=== PATIENT | female | born 1980 | race Caucasian/White ===

== ENCOUNTER 2022-02-13 18:56 | Outpatient (CLI) | payer BC, SELFPAY | END 2022-02-13 18:57 | disposition home or self-care (01) | LOC: AMB 02-16 16:54 | PROVIDERS: PCP Family Medicine; Visit Provider Family Medicine | DX: R10.9 Unspecified abdominal pain (principal) | CPT/HCPCS: A0425; A0433 ==

== ENCOUNTER 2022-02-13 19:30 | Day surgery (SDC) | payer BC, SELFPAY ==
[2022-02-13] VITALS (12 sets, daily range): BP systolic 88–112; BP diastolic 43–76; PULSE 50–67; RESP 12–18; TEMP 36.3–36.4; O2SAT 94–98
--- NOTE | 2022-02-13 19:40 | CT_ITS ---
Final Report Patient: KIERRA LYONS Facility:?[facility] Patient ID:?[id number] Site Patient ID:?[id number]. Site :?[id number] Study:?CT Abdomen/Pelvis W/O-02/13/2022 8:11:22 PM Ordering Physician:Hayde Gonzales Final Report: Indication: Abdominal pain. Technique: Multiple contiguous axial images were obtained from the lung bases through the symphysis pubis without intravenous contrast enhancement. Please note that all CT scans at this facility use dose modulation, iterative reconstruction, and/or weight-based dosing when appropriate to reduce radiation dose to as low as reasonably achievable. Comparison: October 19, 2013. Findings: The lung bases are clear. The heart is normal in size. No pericardial effusion is identified. Postsurgical changes of right mastectomy are identified. The unenhanced liver, spleen, gallbladder, pancreas, adrenals, and kidneys are normal. No intrahepatic biliary ductal dilatation is identified. No hydronephrosis is identified. In the pelvis, the urinary bladder is normal. The uterus is normal. No free fluid or free air is identified within the abdomen or pelvis. The small and large bowel are normal in caliber. The appendix is enlarged. Inflammatory changes are identified surrounding the appendix. The appendix is best seen on image number 90, series 2. The appendix measures up to 9 mm in size. The aorta is normal in caliber. Impression: Findings most consistent with appendicitis Please note that all CT scans at this facility use dose modulation, iterative reconstruction, and/or weight-based dosing when appropriate to reduce radiation dose to as low as reasonably achievable. Dictated by Rhianna Palomares MD @ 02/13/2022 8:55:31 PM (Electronic Signature)
--- NOTE | 2022-02-13 19:44 | ED_ITS ---
HPI - General Adult General Time Seen by Provider: 19:43 Date Seen: 02/13/22 Chief complaint: Abdominal Pain Stated complaint: Abdominal pain Time Seen by Provider: 02/13/22 21:17 Source: patient Mode of arrival: EMS History of Present Illness HPI narrative: 42-year-old female who comes in today with abdominal pain. Gradual onset over the last 4 hours. Has gotten progressively worse, mostly in the upper abdomen and left flank. Pain is constant, no relieving or exacerbating factors. Does not seem to be worse with movement or breathing. No chest pain. Denies urinary symptoms including hematuria or dysuria. Normal bowel movements today. Did vomit once. Denies fever chills. Took Tums with no improvement. Pain is sharp. Related Data Home Medications Medication Instructions Recorded Confirmed dicyclomine 20 mg tablet 20 mg PO BID 02/13/22 02/13/22 Previous Rx's Medication Instructions Recorded hydrocodone 5 mg-acetaminophen 325 1 tab PO Q6H PRN #25 tab 02/14/22 mg tablet Allergies Allergy/AdvReac Type Severity Reaction Status Date / Time Latex, Natural Rubber Allergy Mild rash Verified 02/13/22 19:40 Review of Systems Status of ROS: Reports: 10 or more systems reviewed and unremarkable except as noted in History and below [facility] Medical History IBS (irritable bowel syndrome) Family History (Updated 02/13/22 @ 22:17 by Tucker Ga MD) Mother Colon cancer Sister Breast cancer Social History Smoking Status: Former smoker What tobacco products do you use: cigarettes Smoking quit date/years: >15 years ago Do you use any of these nicotine containing products: None Second hand tobacco smoke exposure: No How often do you have a drink containing alcohol: monthly or less How many standard drinks containing alcohol do you have on a typical day: 1 or 2 How often do you have six or more drinks on one occasion: Never AUDIT-C Alcohol total score: 1 Non-prescribed substance use: denies use Exam Const: Vital Signs, click to edit/add: Vital Signs - 24 hr 02/13/22 19:46 02/13/22 20:17 Temperature 97.6 F 97.6 F Pulse Rate [Pulse Oximeter] 67 Respiratory Rate 16 Blood Pressure [Le ft Upper Arm] 96/58 L Pulse Oximetry 94 Documenting provider has reviewed patient's vital signs: yes Common normals: oriented x3, alert and well nourished Other: Appears uncomfortable HENMT: Common normals: normocephalic, head/scalp atraumatic, external ears normal and external nose normal Head and scalp: normocephalic and atraumatic Nose: external nose normal External ear: external ears normal Eye: Common normals: PERRL and conjunctivae normal Conjunctiva: conjunctiva(e) normal Pupil: PERRL Neck & C-Spine: Common normals: full ROM, no lymphadenopathy and supple Chest: Common normals: palpation of chest normal Resp: Common normals: normal respiratory effort and clear to auscultation bilaterally Auscultation: clear to auscultation bilaterally Cardio: Common normals: regular rate, regular rhythm and no murmurs Rate: regular rate Rhythm: regular rhythm GI: Other: Distended with normal bowel sounds, diffuse tenderness : Common normals: no CVA tenderness Bladder/kidney exam: no CVA tenderness Back & Pelvis: Common normals: no CVA tenderness and thoracic and lumbar spine normal to inspection Extremity: Common normals: normal to inspection, full ROM and no pedal edema Neuro: Common normals: oriented x3, CN's II-XII intact bilaterally and no focal motor deficits Sensorium/orientation: alert Psych: Common normals: mental status grossly normal Skin: Common normals: no rashes or lesions noted General skin exam: no rashes or lesions noted Course Reevaluation(s) Reevaluation #1: Labs so far demonstrate leukocytosis, basic panel in my previous lower normal. Hepatic panel urinalysis are still pending. Sign out to Dr. Roach. Time: 20:48 Vital Signs Vital signs: Initial Vital Signs Temperature 97.6 F 02/13/22 19:46 Temperature Source Temporal Artery Scan 02/13/22 19:46 Pulse Rate 67 02/13/22 19:46 Pulse Rhythm 02/13/22 19:46 Pulse Strength 3+ Normal 02/13/22 19:46 Respiratory Rate 16 02/13/22 19:46 Blood Pressure 96/58 L 02/13/22 19:46 Blood Pressure Mean 70 02/13/22 19:46 Blood Pressure Position Semi-Fowlers 02/13/22 19:46 Pulse Oximetry 94 02/13/22 19:46 Oxygen Delivery Method 02/13/22 19:46 Vital Signs Temperature 97.6 F 02/13/22 19:46 Pulse Rate 67 02/13/22 19:46 Respiratory Rate 16 02/13/22 19:46 Blood Pressure 96/58 L 02/13/22 19:46 Pulse Oximetry 94 02/13/22 19:46 Temperature 99.3 F 02/14/22 08:20 Pulse Rate 64 02/14/22 08:20 Respiratory Rate 18 02/14/22 08:20 Blood Pressure 101/58 L 02/14/22 08:20 Pulse Oximetry 97 02/14/22 08:20 Medical Decision Making Medical Records Medical records reviewed: Yes I reviewed the patient's medical records Lab Data Lab results reviewed: Yes I reviewed the patient's lab results Labs: Lab Results 02/13/22 02/13/22 02/13/22 Range/Units 19:55 19:55 19:55 WBC 12.97 H (4.50-11.00) K/uL RBC 3.82 L (4.00-5.20) m/uL Hgb 11.7 L (12.0-16.0) gm/dL Hct 35.7 (33.0-51.0) % MCV 94 (80-100) fL MCH 31 (26-34) pg MCHC 33 (32-36) gm/dL RDW Coeff of Christopher 11.8 (11.5-15.5) % Plt Count 249 (140-440) K/uL Neut % (Auto) 74.4 H (42.0-72.0) % Lymph % (Auto) 17.0 L (20-44) % [place] % (Auto) 6.2 (0.0-11.0) % Eos % (Auto) 1.9 (0.0-7.0) % Baso % (Auto) 0.3 (0.0-3.0) % Neut # (Auto) 9.60 H (1.7-7.0) K/uL Lymph # (Auto) 2.20 (0.90-2.90) K/uL [place] # (Auto) 0.80 (0.00-0.90) K/UL Eos # (Auto) 0.20 (0.00-0.50) K/uL Baso # (Auto) 0.00 (0.00-0.30) K/uL Abs Immat Gran (auto) 0.02 (0.00-0.30) K/uL Sodium 136 (135-149) mmol/L Potassium 3.7 (3.6-5.1) mmol/L Chloride 105 (96-114) mmol/L Carbon Dioxide 25 (20-32) mmol/L BUN 15 (5-24) mg/dL Creatinine 0.6 (0.5-1.5) mg/dL Glucose 122 H (60-115) mg/dL Lactate 0.7 (0.5-1.9) mmol/L Calcium 8.5 (8.4-10.6) mg/dL Total Bilirubin 0.5 (0.1-1.5) mg/dL Direct Bilirubin 0.3 (0.0-0.5) mg/dL AST 23 (12-35) U/L ALT 13 (4-35) U/L Alkaline Phosphatase 41 (40-150) U/L Total Protein 6.1 (6.0-8.3) g/dL Albumin 3.8 (3.3-5.0) g/dL Lipase 38 (23-300) U/L Urine Color (Yellow) Urine Appearance (Clear) Urine pH (5.0-8.5) Ur Specific [place] (1.000-1.030) Urine Protein (Negative) Urine Glucose (UA) (Negative) Urine Ketones (Negative) Urine Blood (Negative) Urine Nitrite (Negative) Urine Bilirubin (Negative) Urine Urobilinogen (0.2-1.0) Ur Leukocyte Esterase (Negative) Urine RBC (0-2) Urine WBC (0-5) Ur Squamous Epith Cells (None-Few) Urine Bacteria (None) Fine Granular Casts (None) Coarse Granular Casts (None) SARS-CoV-2 (PCR) (Negative) 02/13/22 02/13/22 02/13/22 Range/Units 19:55 21:08 21:21 WBC (4.50-11.00) K/uL RBC (4.00-5.20) m/uL Hgb (12.0-16.0) gm/dL Hct (33.0-51.0) % MCV (80-100) fL MCH (26-34) pg MCHC (32-36) gm/dL RDW Coeff of Christopher (11.5-15.5) % Plt Count (140-440) K/uL Neut % (Auto) (42.0-72.0) % Lymph % (Auto) (20-44) % [place] % (Auto) (0.0-11.0) % Eos % (Auto) (0.0-7.0) % Baso % (Auto) (0.0-3.0) % Neut # (Auto) (1.7-7.0) K/uL Lymph # (Auto) (0.90-2.90) K/uL [place] # (Auto) (0.00-0.90) K/UL Eos # (Auto) (0.00-0.50) K/uL Baso # (Auto) (0.00-0.30) K/uL Abs Immat Gran (auto) (0.00-0.30) K/uL Sodium (135-149) mmol/L Potassium (3.6-5.1) mmol/L Chloride (96-114) mmol/L Carbon Dioxide (20-32) mmol/L BUN (5-24) mg/dL Creatinine (0.5-1.5) mg/dL Glucose (60-115) mg/dL Lactate (0.5-1.9) mmol/L Calcium (8.4-10.6) mg/dL Total Bilirubin Cancelled (0.1-1.5) mg/dL Direct Bilirubin Cancelled (0.0-0.5) mg/dL AST Cancelled (12-35) U/L ALT Cancelled (4-35) U/L Alkaline Phosphatase Cancelled (40-150) U/L Total Protein Cancelled (6.0-8.3) g/dL Albumin Cancelled (3.3-5.0) g/dL Lipase (23-300) U/L Urine Color Yellow (Yellow) Urine Appearance Clear (Clear) Urine pH 7.0 (5.0-8.5) Ur Specific [place] 1.020 (1.000-1.030) Urine Protein Negative (Negative) Urine Glucose (UA) Negative (Negative) Urine Ketones 2+ A (Negative) Urine Blood Negative (Negative) Urine Nitrite Negative (Negative) Urine Bilirubin Negative (Negative) Urine Urobilinogen 0.2 (0.2-1.0) Ur Leukocyte Esterase Negative (Negative) Urine RBC 0-2 (0-2) Urine WBC 2-5 (0-5) Ur Squamous Epith Cells None (None-Few) Urine Bacteria None (None) Fine Granular Casts (None) Coarse Granular Casts Moderate A (None) SARS-CoV-2 (PCR) POSITIVE (Negative) 02/14/22 02/14/22 Range/Units 06:30 06:30 WBC 10.16 (4.50-11.00) K/uL RBC 3.62 L (4.00-5.20) m/uL Hgb 11.2 L (12.0-16.0) gm/dL Hct 33.5 (33.0-51.0) % MCV 93 (80-100) fL MCH 31 (26-34) pg MCHC 33 (32-36) gm/dL RDW Coeff of Christopher 11.9 (11.5-15.5) % Plt Count 264 (140-440) K/uL Neut % (Auto) 89.2 H (42.0-72.0) % Lymph % (Auto) 6.7 L (20-44) % [place] % (Auto) 3.9 (0.0-11.0) % Eos % (Auto) 0.0 (0.0-7.0) % Baso % (Auto) 0.1 (0.0-3.0) % Neut # (Auto) 9.10 H (1.7-7.0) K/uL Lymph # (Auto) 0.70 L (0.90-2.90) K/uL [place] # (Auto) 0.40 (0.00-0.90) K/UL Eos # (Auto) 0.00 (0.00-0.50) K/uL Baso # (Auto) 0.01 (0.00-0.30) K/uL Abs Immat Gran (auto) 0.01 (0.00-0.30) K/uL Sodium 136 (135-149) mmol/L Potassium 4.1 (3.6-5.1) mmol/L Chloride 106 (96-114) mmol/L Carbon Dioxide 23 (20-32) mmol/L BUN 10 (5-24) mg/dL Creatinine 0.5 (0.5-1.5) mg/dL Glucose 140 H (60-115) mg/dL Lactate (0.5-1.9) mmol/L Calcium 8.7 (8.4-10.6) mg/dL Total Bilirubin 0.8 (0.1-1.5) mg/dL Direct Bilirubin 0.2 (0.0-0.5) mg/dL AST 23 (12-35) U/L ALT 19 (4-35) U/L Alkaline Phosphatase 39 L (40-150) U/L Total Protein 5.9 L (6.0-8.3) g/dL Albumin 3.6 (3.3-5.0) g/dL Lipase 38 (23-300) U/L Urine Color (Yellow) Urine Appearance (Clear) Urine pH (5.0-8.5) Ur Specific [place] (1.000-1.030) Urine Protein (Negative) Urine Glucose (UA) (Negative) Urine Ketones (Negative) Urine Blood (Negative) Urine Nitrite (Negative) Urine Bilirubin (Negative) Urine Urobilinogen (0.2-1.0) Ur Leukocyte Esterase (Negative) Urine RBC (0-2) Urine WBC (0-5) Ur Squamous Epith Cells (None-Few) Urine Bacteria (None) Fine Granular Casts (None) Coarse Granular Casts (None) SARS-CoV-2 (PCR) (Negative) Discharge Plan Discharge Clinical Impression: Acute appendicitis Patient Disposition: Admitted As Inpatient Activity Level: No strenuous activity Activity Detail: No lifting more than 15-20 lb for total of 4 weeks. Discharge Diet: Regular
[2022-02-13 20:00] LABS: Slide Review Reflex No
[2022-02-13 20:01] LABS: Basophils Percent Auto 0.3 % (0.0-3.0); Eosinophils Percent Auto 1.9 % (0.0-7.0); Hematocrit 35.7 % (33.0-51.0); Hemoglobin* 11.7 gm/dL (12.0-16.0); Immature Granulocytes Abs Auto 0.02 K/uL (0.00-0.30); Lactate* 0.7 mmol/L (0.5-1.9); Mean Corpuscular HGB Conc 33 gm/dL (32-36); Mean Corpuscular Hemoglobin 31 pg (26-34); Mean Corpuscular Volume 94 fL (80-100); Monocytes Percent Auto 6.2 % (0.0-11.0); Neutrophils Percent Auto 74.4 % (42.0-72.0); Platelet Count* 249 K/uL (140-440); RDW Coefficient of Variation % 11.8 % (11.5-15.5); Red Blood Count 3.82 m/uL (4.00-5.20); White Blood Count* 12.97 K/uL (4.50-11.00)
[2022-02-13] MEDS: LACTATED RINGERS 1000 ML 1,000 ML IV (20:03)
[2022-02-13] MEDS: KETOROLAC 15 MG/ML inj IVP (20:17)
[2022-02-13 20:22] LABS: Chloride* 105 mmol/L (96-114); Potassium* 3.7 mmol/L (3.6-5.1); Sodium* 136 mmol/L (135-149)
[2022-02-13 20:24] LABS: Creatinine* 0.6 mg/dL (0.5-1.5); Estimated Glomerular Filt Rate 114.86; Lipase* 38 U/L (23-300)
[2022-02-13 20:25] LABS: Blood Urea Nitrogen* 15 mg/dL (5-24); Calcium* 8.5 mg/dL (8.4-10.6); Carbon Dioxide* 25 mmol/L (20-32); Glucose* 122 mg/dL (60-115)
--- NOTE | 2022-02-13 20:59 | ED.NURSE ---
Patient reporting improvement in pain after pain medication. Now rates 3/10, which patient states is tolerable.
--- NOTE | 2022-02-13 21:16 | ED_ITS ---
HPI - Abdominal Pain General Time Seen by Provider: 21:16 Date Seen: 02/13/22 Chief Complaint: Abdominal Pain Stated Complaint: Abdominal pain Time Seen by Provider: 02/13/22 21:17 Source: patient Mode of arrival: EMS History of Present Illness HPI narrative: Patient seen as a handoff from my colleague. CT comes back showing signs of appendicitis. Related Data Home Medications Medication Instructions Recorded Confirmed dicyclomine 20 mg tablet 20 mg PO BID 02/13/22 02/13/22 Allergies Allergy/AdvReac Type Severity Reaction Status Date / Time Latex, Natural Rubber Allergy Mild rash Verified 02/13/22 19:40 [facility] Medical History IBS (irritable bowel syndrome) Social History Smoking Status: Former smoker What tobacco products do you use: cigarettes Smoking quit date/years: >15 years ago Do you use any of these nicotine containing products: None Second hand tobacco smoke exposure: No How often do you have a drink containing alcohol: monthly or less How many standard drinks containing alcohol do you have on a typical day: 1 or 2 How often do you have six or more drinks on one occasion: Never AUDIT-C Alcohol total score: 1 Non-prescribed substance use: denies use Exam Const: Vital Signs, click to edit/add: Vital Signs - 24 hr 02/13/22 19:46 02/13/22 20:17 02/13/22 21:00 Temperature 97.6 F 97.6 F Pulse Rate [Pulse Oximeter] 67 57 L Respiratory Rate 16 18 Blood Pressure [Le ft Upper Arm] 96/58 L 112/76 Pulse Oximetry 94 98 Course Course Hospital Course: Patient seen and examined, prior records reviewed. Differential diagnosis includes but not limited to gastritis, acute cholecystitis, enteritis, colitis, diverticulitis, urinary tract infection, urinary retention, kidney stone, bowel obstruction. Patient presents with diffuse abdominal pain, distention and tenderness. Review of chart demonstrates a history of a IBS in symptoms could certainly be from that, cannot exclude other intra-abdominal pathology. Labs and CT scan ordered. Patient received pain medication from EMS and is more comfortable now. Vital Signs Vital signs: Initial Vital Signs Temperature 97.6 F 02/13/22 19:46 Temperature Source Temporal Artery Scan 02/13/22 19:46 Pulse Rate 67 02/13/22 19:46 Pulse Rhythm 02/13/22 19:46 Pulse Strength 3+ Normal 02/13/22 19:46 Respiratory Rate 16 02/13/22 19:46 Blood Pressure 96/58 L 02/13/22 19:46 Blood Pressure Mean 70 02/13/22 19:46 Blood Pressure Position Semi-Fowlers 02/13/22 19:46 Pulse Oximetry 94 02/13/22 19:46 Oxygen Delivery Method 02/13/22 19:46 Vital Signs Temperature 97.6 F 02/13/22 19:46 Pulse Rate 67 02/13/22 19:46 Respiratory Rate 16 02/13/22 19:46 Blood Pressure 96/58 L 02/13/22 19:46 Pulse Oximetry 94 02/13/22 19:46 Temperature 97.6 F 02/13/22 20:17 Pulse Rate 57 L 02/13/22 21:00 Respiratory Rate 18 02/13/22 21:00 Blood Pressure 112/76 02/13/22 21:00 Pulse Oximetry 98 02/13/22 21:00 MDM - Abdominal Pain Lab Data Labs: Lab Results 02/13/22 02/13/22 02/13/22 Range/Units 19:55 19:55 19:55 WBC 12.97 H (4.50-11.00) K/uL RBC 3.82 L (4.00-5.20) m/uL Hgb 11.7 L (12.0-16.0) gm/dL Hct 35.7 (33.0-51.0) % MCV 94 (80-100) fL MCH 31 (26-34) pg MCHC 33 (32-36) gm/dL RDW Coeff of Christopher 11.8 (11.5-15.5) % Plt Count 249 (140-440) K/uL Neut % (Auto) 74.4 H (42.0-72.0) % Lymph % (Auto) 17.0 L (20-44) % [place] % (Auto) 6.2 (0.0-11.0) % Eos % (Auto) 1.9 (0.0-7.0) % Baso % (Auto) 0.3 (0.0-3.0) % Neut # (Auto) 9.60 H (1.7-7.0) K/uL Lymph # (Auto) 2.20 (0.90-2.90) K/uL [place] # (Auto) 0.80 (0.00-0.90) K/UL Eos # (Auto) 0.20 (0.00-0.50) K/uL Baso # (Auto) 0.00 (0.00-0.30) K/uL Abs Immat Gran (auto) 0.02 (0.00-0.30) K/uL Sodium 136 (135-149) mmol/L Potassium 3.7 (3.6-5.1) mmol/L Chloride 105 (96-114) mmol/L Carbon Dioxide 25 (20-32) mmol/L BUN 15 (5-24) mg/dL Creatinine 0.6 (0.5-1.5) mg/dL Glucose 122 H (60-115) mg/dL Lactate 0.7 (0.5-1.9) mmol/L Calcium 8.5 (8.4-10.6) mg/dL Lipase 38 (23-300) U/L Discharge Plan Discharge Clinical Impression: Acute appendicitis Prescriptions: No Action dicyclomine 20 mg tablet 20 mg PO BID 0RF Label Comments: TAKE 1 TABLET BY MOUTH TWICE DAILY Follow Up/Referrals: Jerica Christie MD [Primary Care Provider] -
[2022-02-13 21:48] LABS: Appearance Urine Clear (Clear); Bilirubin Urine Negative (Negative); Blood Urine Negative (Negative); Color Urine Yellow (Yellow); Glucose Urine Negative (Negative); Ketones Urine 2+ (Negative); Leukocyte Esterase Urine Negative (Negative); Nitrite Urine Negative (Negative); Protein Urine Negative (Negative); Urobilinogen Urine 0.2 (0.2-1.0)
[2022-02-13 21:52] LABS: Albumin* 3.8 g/dL (3.3-5.0)
[2022-02-13 21:55] LABS: Bilirubin Direct* 0.3 mg/dL (0.0-0.5); Bilirubin Total* 0.5 mg/dL (0.1-1.5)
[2022-02-13 21:56] LABS: Alanine Aminotransferase* 13 U/L (4-35); Alkaline Phosphatase* 41 U/L (40-150); Aspartate Amino Transferase* 23 U/L (12-35); Total Protein* 6.1 g/dL (6.0-8.3)
[2022-02-13 21:57] LABS: RBC Urine 0-2 (0-2)
[2022-02-13 21:59] LABS: Coarse Granular Casts Urine Moderate
--- NOTE | 2022-02-13 22:07 | P.GSHP_ITS ---
History of Present Illness History of Present Illness Chief complaint: Abdominal pain Narrative: Consuelo Daigle is a 42 year old female Presented to emergency room with abdominal pain. Patient states the abdominal pain started in the morning. Was located in the mid abdomen. Patient's pain was getting more severe throughout the day. When she got home from work, she could not get comfortable. Patient took Tums but that did not help her pain. She stated that she was feeling like she was going to pass out and called the ambulance. In the emergency room she was found to have an elevated WBC of 12. Her hemoglobin was 11.7. An abdominal CT was obtained that showed a dilated wall enhancing appendix with appendicoliths. there was no evidence of a phlegmon or periappendiceal abscess. Review of Systems Narrative: General: no fevers HENT: no problems swallowing CV: no shortness of breath Resp: no cough, no breathing problems GI: See above Skin: no new rashes Musculoskeletal: no back pain Neuro: no muscle weakness Psyche: no depression PFSH PFSH Medical History IBS (irritable bowel syndrome) Social History Smoking Status: Former smoker What tobacco products do you use: cigarettes Smoking quit date/years: >15 years ago Do you use any of these nicotine containing products: None Second hand tobacco smoke exposure: No How often do you have a drink containing alcohol: monthly or less How many standard drinks containing alcohol do you have on a typical day: 1 or 2 How often do you have six or more drinks on one occasion: Never AUDIT-C Alcohol total score: 1 Non-prescribed substance use: denies use Tobacco Smoking Status: Former smoker What tobacco products do you use: cigarettes Smoking quit date/years: >15 years ago Do you use any of these nicotine containing products: None Second hand tobacco smoke exposure: No Alcohol - AUDIT-C How often do you have a drink containing alcohol: monthly or less How many standard drinks containing alcohol do you have on a typical day: 1 or 2 How often do you have six or more drinks on one occasion: Never AUDIT-C Alcohol total score: 1 Source: Developed by Andree Sen DR et al (1998). The AUDIT alcohol consumption questions (AUDIT-C): An effective brief screening test for problem drinking. [employer] (AC[employer]). [employer] Med. 158:1789- 95. Drugs Non-prescribed substance use: denies use Meds Home Medications and Allergies Home Medications Medication Instructions Recorded Confirmed Type dicyclomine 20 mg tablet 20 mg PO BID 02/13/22 02/13/22 History Allergies Allergy/AdvReac Type Severity Reaction Status Date / Time Latex, Natural Rubber Allergy Mild rash Verified 02/13/22 19:40 Exam Narrative: Exam Narrative: General appearance: Alert, cooperative, and in no distress Pulmonary: Chest symmetric, lungs clear bilaterally Cardiovascular Heart: Regular rate and rhythm, S1, S2, no murmurs/rubs/gallops Gastrointestinal: abdomen is soft, not distended, tender to palpation in epigastrium and right lower quadrant with most tenderness located in the right lower quadrant. Skin: Normal skin color, texture, and turgor. Psychiatric: Alert, cooperative, normal affect. Const: Vital Signs, click to edit/add: Vital Signs - 24 hr 02/13/22 19:46 02/13/22 20:17 02/13/22 21:00 Temperature 97.6 F 97.6 F Pulse Rate [Pulse Oximeter] 67 57 L Respiratory Rate 16 18 Blood Pressure [Le ft Upper Arm] 96/58 L 112/76 Pulse Oximetry 94 98 Documenting provider has reviewed patient's vital signs: yes Results Results CT scan - pelvis: report reviewed and image reviewed Assessment and Plan Assessment and plan (1) Acute appendicitis: Status: Acute Plan 42-year-old female with acute appendicitis. Discussed with the patient my clinical findings and her laboratory and imaging findings. Patient's WBC is elevated and her abdominal CT shows a dilated wall enhancing appendix consistent with acute appendicitis. I recommended to proceed with laparoscopic appendectomy. The procedure was discussed in detail. The risks associated the procedure including infection, bleeding, injury to intra- abdominal organs, and exposure to COVID-19 were all discussed with the patient, and she agreed to proceed.
[2022-02-13] MEDS: LACTATED RINGERS 1000 ML 1,000 ML 100 ML IV (22:25)
[2022-02-13] MEDS: CEFAZOLIN 2 GM INJ IVP (22:30)
[2022-02-13 22:31] LABS: SARS PCR* POSITIVE (Negative)
[2022-02-14] VITALS (11 sets, daily range): BP systolic 93–107; BP diastolic 49–64; PULSE 56–64; RESP 16–18; TEMP 36–37.4; O2SAT 96–100
--- NOTE | 2022-02-14 00:03 | W.ANESCHARGE ---
Anesthesia Charges Start Date/Time Anesthesia Start Date: 02/13/22 Anesthesia Start Time: 22:23 Stop Date/Time Anesthesia Stop Date: 02/13/22 Anesthesia Stop Time: 23:20 Summary Emergency: Yes
[2022-02-14] MEDS: LACTATED RINGERS 1000 ML 1,000 ML 100 ML IV (02:34)
[2022-02-14] MEDS: HYDROCODONE-ACETAMIN 5-325 MG 1 TAB PO (03:57)
--- NOTE | 2022-02-14 06:52 | PC.NURSE ---
Pt came to med/surg from PACU around 0007. VSS and she is tolerating food and liquids. Voiding well. Pain controlled with meds. 2 Lap sites with steris that are CDI.
[2022-02-14 06:54] LABS: Slide Review Reflex No
[2022-02-14 07:09] LABS: Basophils Absolute Auto 0.01 K/uL (0.00-0.30); Basophils Percent Auto 0.1 % (0.0-3.0); Hematocrit 33.5 % (33.0-51.0); Hemoglobin* 11.2 gm/dL (12.0-16.0); Immature Granulocytes Abs Auto 0.01 K/uL (0.00-0.30); Lymphocytes Percent Auto 6.7 % (20-44); Mean Corpuscular HGB Conc 33 gm/dL (32-36); Mean Corpuscular Hemoglobin 31 pg (26-34); Mean Corpuscular Volume 93 fL (80-100); Monocytes Percent Auto 3.9 % (0.0-11.0); Neutrophils Percent Auto 89.2 % (42.0-72.0); Platelet Count* 264 K/uL (140-440); RDW Coefficient of Variation % 11.9 % (11.5-15.5); Red Blood Count 3.62 m/uL (4.00-5.20); White Blood Count* 10.16 K/uL (4.50-11.00)
[2022-02-14 07:30] LABS: Albumin* 3.6 g/dL (3.3-5.0); Chloride* 106 mmol/L (96-114); Potassium* 4.1 mmol/L (3.6-5.1); Sodium* 136 mmol/L (135-149)
[2022-02-14 07:33] LABS: Alkaline Phosphatase* 39 U/L (40-150); Aspartate Amino Transferase* 23 U/L (12-35); Bilirubin Direct* 0.2 mg/dL (0.0-0.5); Bilirubin Total* 0.8 mg/dL (0.1-1.5); Blood Urea Nitrogen* 10 mg/dL (5-24); Calcium* 8.7 mg/dL (8.4-10.6); Carbon Dioxide* 23 mmol/L (20-32); Creatinine* 0.5 mg/dL (0.5-1.5); Estimated Glomerular Filt Rate 120.02; Glucose* 140 mg/dL (60-115); Total Protein* 5.9 g/dL (6.0-8.3)
[2022-02-14 07:34] LABS: Alanine Aminotransferase* 19 U/L (4-35); Lipase* 38 U/L (23-300)
[2022-02-14] MEDS: IBUPROFEN 600 MG TABLET PO (08:29)
--- NOTE | 2022-02-14 08:30 | P.GSOP_ITS ---
Operative Note Date of procedure: 02/13/22 Pre-op diagnosis: 1. Acute appendicitis. Post-op diagnosis: same Type of Procedure: 1. Laparoscopic appendectomy. Procedure Description: Indications: Patient presented to emergency room with periumbilical abdominal pain that started in the morning. Patient's pain was getting progressively worse and became more severe. She vomited. In the emergency room she was found to have an elevated WBC of 12. An abdominal CT was obtained that showed a dilated wall enhancing appendix with appendicoliths. On clinical exam patient had tenderness to palpation in the right lower quadrant and epigastrium. Given patient's clinical picture, acute appendicitis was suspected and laparoscopic appendectomy was recommended. The procedure was discussed in detail. The risks associated the procedure including infection, bleeding, injury to intra- abdominal organs, and exposure to COVID-19 were all discussed with the patient, and she agreed to proceed. After an informed consent was obtained, the patient was brought to the operating room. The patient was placed supine on the operating table and intubated by anesthesia. The surgical site was prepped and draped in the usual sterile fashion. The TIME-OUT was held and patient's identity was confirmed. A 5-mm laparoscopy port was placed in the left upper quadrant guided by a 5-mm laparoscope placed into a translucent trochar. Passage through the layers of the abdominal wall was visualized with the laparoscope. A pneumoperitoneum was established. A 30-degree 5-mm laparoscope was advanced into the abdomen. The abdomen was briefly surveyed, and there was no evidence of diffuse peritonitis. A 12-mm port and a 5-mm port were placed in the left low quadrant and suprapubically, respectively, under direct visualization by laparoscope. Left upper quadrant entrance port was then examined intraabdominally by placing the camera through the left lower quadrant port and no intraabdominal injury was seen. The patient was placed in Trendelenburg position, allowing the abdominal contents to shift cephalad. adhesions were noted in the right upper quadrant and right mid abdomen. The camera was advanced around the adhesions. The small bowel was moved toward the midline in the abdomen and this allowed for identification of the appendix. It appeared to be inflamed. The appendix was grasped and dissected from the peritoneum using Harmonic scalpel. A [place] clamp was passed between the appendiceal mesentery and the base of the appendix, creating a window. The appendiceal mesentery was skeletonized with the Mathew lala scalpel. When the appendiceal artery was clearly identified, it was clipped with two 5 mm clips on the patient's side and divided with Harmonic scalpel on the specimen side. A vascular load Endo-DORCAS stapler was advanced through the 12-mm port into the abdomen and appendix was stapled off at its base. The appendix was then placed into the Endo-Catch bag and removed through the left lower quadrant incision. The abdomen was surveyed for hemostasis. And no bleeding was seen. The 12-mm port was withdrawn and the fascial defect was closed with 0-0 Vicryl stitch using Enrico Luly needle under direct visualization. The 5-mm port was removed under direct visualization. The left upper quadrant port was used to evacuate the pneumoperitoneum and then withdrawn. The skin incisions were closed with 4-0 monocryl. Steri-Strips were applied over the incisions. All counts were correct at the end of the case. The patient tolerated this procedure well and was transferred to PACU in stable condition. Findings: Inflamed dilated appendix with normal appendiceal base. Anesthesia: GETA Surgeon: Tucker Ga MD Estimated blood loss (mL): 5 Pathology Details: Appendix. Condition: stable Disposition: PACU
--- NOTE | 2022-02-14 09:03 | P.DS_ITS ---
DS: Providers Provider Primary care physician: Jerica Christie MD Attending Physician on discharge: Tucker Ga MD DS: Diagnosis Discharge Diagnosis (1) Acute appendicitis: Status: Acute DS: Summary Hospital Course Hospital Course: Patient underwent laparoscopic appendectomy. She did well postoperatively. Status at Discharge Functional status at discharge: independent ambulation Time Spent with Patient Time attestation: Total time spent providing and/or coordinating discharge services: Exam Narrative: Exam Narrative: Abdomen is soft, not distended, minimally tender to palpation in the right lower quadrant and left lower quadrant. Surgical incisions with Steri-Strips with dried drainage on them. There is no surrounding erythema. Const: Vital Signs, click to edit/add: Vital Signs - 24 hr 02/13/22 19:46 02/13/22 20:17 02/13/22 21:00 Temperature 97.6 F 97.6 F Pulse Rate Pulse Rate [Pulse Oximeter] 67 57 L Respiratory Rate 16 18 Blood Pressure Blood Pressure [Le ft Upper Arm] 96/58 L 112/76 Blood Pressure [Ri ght Arm] Pulse Oximetry 94 98 02/13/22 22:57 02/13/22 23:20 02/13/22 23:25 Temperature 97.6 F 97.4 F L Pulse Rate 50 L Pulse Rate [Pulse Oximeter] Respiratory Rate 18 14 12 Blood Pressure 103/43 L 88/50 L Blood Pressure [Le ft Upper Arm] Blood Pressure [Ri ght Arm] Pulse Oximetry 94 95 02/13/22 23:30 02/13/22 23:35 02/13/22 23:40 Temperature Pulse Rate 55 L 50 L 50 L Pulse Rate [Pulse Oximeter] Respiratory Rate 12 12 12 Blood Pressure 100/60 91/45 L 91/56 L Blood Pressure [Le ft Upper Arm] Blood Pressure [Ri ght Arm] Pulse Oximetry 95 96 95 02/13/22 23:45 02/13/22 23:50 02/13/22 23:55 Temperature 97.4 F L Pulse Rate 51 L 53 L 50 L Pulse Rate [Pulse Oximeter] Respiratory Rate 12 12 12 Blood Pressure 94/50 L 92/54 L 94/50 L Blood Pressure [Le ft Upper Arm] Blood Pressure [Ri ght Arm] Pulse Oximetry 96 96 94 02/14/22 00:10 02/14/22 01:15 02/14/22 01:45 Temperature 96.9 F L 96.9 F L Pulse Rate Pulse Rate [Pulse Oximeter] 56 L 58 L 59 L Respiratory Rate 16 16 16 Blood Pressure Blood Pressure [Le ft Upper Arm] Blood Pressure [Ri ght Arm] 96/49 L 101/59 L 103/63 Pulse Oximetry 96 96 96 02/14/22 02:00 02/14/22 02:15 02/14/22 02:30 Temperature 96.9 F L 96.9 F L 97.2 F L Pulse Rate Pulse Rate [Pulse Oximeter] 57 L 60 58 L Respiratory Rate 16 16 16 Blood Pressure Blood Pressure [Le ft Upper Arm] Blood Pressure [Ri ght Arm] 101/63 104/60 107/59 L Pulse Oximetry 100 98 98 02/14/22 03:00 02/14/22 04:00 02/14/22 05:00 Temperature 96.8 F L 96.8 F L Pulse Rate Pulse Rate [Pulse Oximeter] 58 L 61 61 Respiratory Rate 16 16 16 Blood Pressure Blood Pressure [Le ft Upper Arm] Blood Pressure [Ri ght Arm] 104/64 93/58 L 102/60 Pulse Oximetry 96 96 02/14/22 06:00 Temperature 96.8 F L Pulse Rate Pulse Rate [Pulse Oximeter] 63 Respiratory Rate 16 Blood Pressure Blood Pressure [Le ft Upper Arm] Blood Pressure [Ri ght Arm] 96/59 L Pulse Oximetry 96 DS: Data Data Completed and Pending Labs on day of discharge: Labs from last 24 hours 02/14/22 02/14/22 02/13/22 06:30 06:30 22:55 WBC 10.16 RBC 3.62 L Hgb 11.2 L Hct 33.5 MCV 93 MCH 31 MCHC 33 RDW Coeff of Christopher 11.9 Plt Count 264 Neut % (Auto) 89.2 H Lymph % (Auto) 6.7 L [place] % (Auto) 3.9 Eos % (Auto) 0.0 Baso % (Auto) 0.1 Neut # (Auto) 9.10 H Lymph # (Auto) 0.70 L [place] # (Auto) 0.40 Eos # (Auto) 0.00 Baso # (Auto) 0.01 Abs Immat Gran (auto) 0.01 Sodium 136 Potassium 4.1 Chloride 106 Carbon Dioxide 23 BUN 10 Creatinine 0.5 Glucose 140 H Lactate Calcium 8.7 Total Bilirubin 0.8 Direct Bilirubin 0.2 AST 23 ALT 19 Alkaline Phosphatase 39 L Total Protein 5.9 L Albumin 3.6 Lipase 38 Urine Color Urine Appearance Urine pH Ur Specific [place] Urine Protein Urine Glucose (UA) Urine Ketones Urine Blood Urine Nitrite Urine Bilirubin Urine Urobilinogen Ur Leukocyte Esterase Urine RBC Urine WBC Ur Squamous Epith Cells Urine Bacteria Fine Granular Casts Coarse Granular Casts SARS-CoV-2 (PCR) Surg PTH (Off-Site) Pending 02/13/22 02/13/22 02/13/22 21:21 21:08 19:55 WBC RBC Hgb Hct MCV MCH MCHC RDW Coeff of Christopher Plt Count Neut % (Auto) Lymph % (Auto) [place] % (Auto) Eos % (Auto) Baso % (Auto) Neut # (Auto) Lymph # (Auto) [place] # (Auto) Eos # (Auto) Baso # (Auto) Abs Immat Gran (auto) Sodium Potassium Chloride Carbon Dioxide BUN Creatinine Glucose Lactate Calcium Total Bilirubin Cancelled Direct Bilirubin Cancelled AST Cancelled ALT Cancelled Alkaline Phosphatase Cancelled Total Protein Cancelled Albumin Cancelled Lipase Urine Color Yellow Urine Appearance Clear Urine pH 7.0 Ur Specific [place] 1.020 Urine Protein Negative Urine Glucose (UA) Negative Urine Ketones 2+ A Urine Blood Negative Urine Nitrite Negative Urine Bilirubin Negative Urine Urobilinogen 0.2 Ur Leukocyte Esterase Negative Urine RBC 0-2 Urine WBC 2-5 Ur Squamous Epith Cells None Urine Bacteria None Fine Granular Casts Coarse Granular Casts Moderate A SARS-CoV-2 (PCR) POSITIVE Surg PTH (Off-Site) 02/13/22 02/13/22 02/13/22 19:55 19:55 19:55 WBC 12.97 H RBC 3.82 L Hgb 11.7 L Hct 35.7 MCV 94 MCH 31 MCHC 33 RDW Coeff of Christopher 11.8 Plt Count 249 Neut % (Auto) 74.4 H Lymph % (Auto) 17.0 L [place] % (Auto) 6.2 Eos % (Auto) 1.9 Baso % (Auto) 0.3 Neut # (Auto) 9.60 H Lymph # (Auto) 2.20 [place] # (Auto) 0.80 Eos # (Auto) 0.20 Baso # (Auto) 0.00 Abs Immat Gran (auto) 0.02 Sodium 136 Potassium 3.7 Chloride 105 Carbon Dioxide 25 BUN 15 Creatinine 0.6 Glucose 122 H Lactate 0.7 Calcium 8.5 Total Bilirubin 0.5 Direct Bilirubin 0.3 AST 23 ALT 13 Alkaline Phosphatase 41 Total Protein 6.1 Albumin 3.8 Lipase 38 Urine Color Urine Appearance Urine pH Ur Specific [place] Urine Protein Urine Glucose (UA) Urine Ketones Urine Blood Urine Nitrite Urine Bilirubin Urine Urobilinogen Ur Leukocyte Esterase Urine RBC Urine WBC Ur Squamous Epith Cells Urine Bacteria Fine Granular Casts Coarse Granular Casts SARS-CoV-2 (PCR) Surg PTH (Off-Site) Discharge Plan Discharge Disposition: Home, Self-Care Discharging Surgeon: Tucker Ga Follow-Up Appointment: 2 weeks Prescriptions: New hydrocodone-acetaminophen 5-325 mg tablet 1 tab PO Q6H PRN (Reason: pain) Qty: 25 0RF Continued dicyclomine 20 mg tablet 20 mg PO BID 0RF Label Comments: TAKE 1 TABLET BY MOUTH TWICE DAILY Activity Level: No strenuous activity Activity Detail: No lifting more than 15-20 lb for total of 4 weeks. Discharge Diet: Regular Patient Instructions: Laparoscopic Appendectomy (DC), Post-Operative Instructions: Appendectomy Follow-up: Tucker aG MD [Staff Physician] - Discharge Orders: Discharge Order (Routine); Ordered 02/14/22 Ordered By: Tucker Ga
== END 2022-02-14 13:33 | disposition home or self-care (01) ==
LOC: ED 22:13 → SS 23:19 → MEDSURG 02-14 08:39
PROVIDERS: Family Medicine; Emergency Provider Internal Medicine; PCP Family Medicine; Visit Provider Surgery
PROC: 0DTJ4ZZ Resection of Appendix, Percutaneous Endoscopic Approach (ICD-10-PCS; CPT 44970; principal; 2022-02-13 22:00)
DX: K35.80 Unspecified acute appendicitis (principal)
CPT/HCPCS: 44970; 36415; 74176; 80048; 80076; 81001; 83605; 83690; 840; 85025; 87635; 88304; 99140; 99283; 99284; 99285; A9270; J0330; J0690; J1100; J1885; J2250; J2370; J2405; J2704; J2710; J3010; J7120

== ENCOUNTER 2023-07-26 14:46 | Outpatient (CLI) | payer BC, SELFPAY | END 2023-07-26 14:47 | disposition home or self-care (01) | PROVIDERS: PCP Family Medicine; Visit Provider Obstetrics & Gynecology | DX: N92.0 Excessive and frequent menstruation with regular cycle (principal); R23.2 Flushing | CPT/HCPCS: 82670; 83001; 83002; 84443 ==

== ENCOUNTER 2024-01-28 16:31 | Outpatient (CLI) | payer BC, SELFPAY ==
--- NOTE | 2024-01-28 16:40 | CRLHL7_ITS ---
For Patients: As a result of the Century Cures Act, medical imaging exams and procedure reports are released immediately into your electronic medical record. You may view this report before your referring provider. If you have questions, please contact your health care provider. BILATERAL DIGITAL SCREENING MAMMOGRAM WITH COMPUTER-AIDED DETECTION AND TOMOSYNTHESIS CLINICAL HISTORY: Routine screening exam. COMPARISON: 02/18/2020. TECHNIQUE: Digital mammogram in CC and MLO projections including computer-aided detection (CAD). Tomosynthesis was used in this interpretation. BREAST COMPOSITION: There are scattered areas of fibroglandular density. FINDINGS: RIGHT Breast: No suspicious findings. LEFT Breast: Focal asymmetric density lateral LEFT breast 4 cm from the nipple. IMPRESSION: LEFT breast asymmetry/mass. RECOMMENDATIONS: Additional mammographic views of the LEFT breast including 3D spot compression CC/MLO. LEFT breast ultrasound may also be required. BI-RADS Category 0: Incomplete: Need Additional Imaging Evaluation and/or Prior Mammograms for Comparison. The [facility] will contact the patient for follow-up. A lay language report of this examination will be provided to the patient. Dictated by Leobardo Graves MD @ 02/03/2024 10:41:26 AM jj/Dictated by: Leobardo Graves MD @ 02/03/2024 10:41:00 AM (Electronically Signed)
== END 2024-01-28 16:32 | disposition home or self-care (01) ==
LOC: MAMMO 16:34
PROVIDERS: PCP Family Medicine; Visit Provider Family Medicine
DX: Z12.31 Encounter for screening mammogram for malignant neoplasm of breast (principal); N63.20 Unspecified lump in the left breast, unspecified quadrant
CPT/HCPCS: 77063; 77067

== ENCOUNTER 2024-02-07 10:35 | Outpatient (CLI) | payer BC, SELFPAY ==
--- NOTE | 2024-02-07 10:45 | CRLHL7_ITS ---
For Patients: As a result of the Cures Act, medical imaging exams and procedure reports are released immediately into your electronic medical record. You may view this report before your referring provider. If you have questions, please contact your health care provider. LEFT DIAGNOSTIC DIGITAL MAMMOGRAM WITH COMPUTER-AIDED DETECTION AND TOMOSYNTHESIS LEFT BREAST ULTRASOUND CLINICAL HISTORY: LEFT breast mass/asymmetry. COMPARISON: 01/28/2024 TECHNIQUE: Digital LEFT mammogram in two projections with computer-aided detection. Tomosynthesis was used in this interpretation. Real-time ultrasound imaging of LEFT breast with imaging documentation. BREAST COMPOSITION: The breasts are heterogeneously dense, which may obscure small masses. FINDINGS: 3D spot compression CC/MLO LEFT breast mammogram images submitted. Persistent nodular density behind the LEFT nipple without architectural distortion. No suspicious calcifications. Targeted LEFT breast ultrasound performed at 2 o`clock, 1 cm from the nipple. In this location, there is a simple anechoic cyst with increased through-transmission measuring 16 x 9 x 18 mm. IMPRESSION: Benign cyst LEFT breast measuring 1.8 cm at 2 o`clock, 1 cm from the nipple. No suspicious findings. RECOMMENDATION: Annual BILATERAL screening mammography. BI-RADS Category 2: Benign Results and recommendations discussed with the patient A lay language report of this examination will be provided to the patient. Dictated by Leobardo Graves MD @ 02/07/2024 11:13:20 AM [email or web address] ELLSWORTH/Dictated by: Leobardo Graves MD @ 02/07/2024 11:13:00 AM (Electronically Signed)
--- NOTE | 2024-02-07 11:15 | CRLHL7_ITS ---
For Patients: As a result of the Century Cures Act, medical imaging exams and procedure reports are released immediately into your electronic medical record. You may view this report before your referring provider. If you have questions, please contact your health care provider. PLEASE SEE LEFT DIAGNOSTIC MAMMOGRAM OF SAME DAY FOR COMBINED REPORT. [email or web address] RD/Dictated by: Leobardo Graves MD @ 02/07/2024 11:30:00 AM (Electronically Signed)
== END 2024-02-07 10:36 | disposition home or self-care (01) ==
LOC: MAMMO 10:36
PROVIDERS: PCP Family Medicine; Visit Provider Family Medicine
DX: N63.20 Unspecified lump in the left breast, unspecified quadrant (principal); N60.02 Solitary cyst of left breast; R92.8 Other abnormal and inconclusive findings on diagnostic imaging of breast
CPT/HCPCS: 76642; 77065; G0279